=== PATIENT | male | born 1955 | race Caucasian/White ===

== ENCOUNTER 2019-05-07 07:04 | Emergency (ER) | payer BC, OTHER ==
[2019-05-07 07:25] VITALS: PULSE 83
[2019-05-07] MEDS ORDERED: Ketorolac 60 MG/2 ML SDV IM ONE (07:30)
--- NOTE | 2019-05-07 07:40 | EDM.PDOC ---
ED HPI GENERAL MEDICAL PROBLEM - General Chief Complaint: Back Pain or Injury Stated Complaint: back pain Time Seen by Provider: 05/07/19 07:24 Source of Information: Reports: Patient History Limitations: Reports: No Limitations - History of Present Illness INITIAL COMMENTS - FREE TEXT/NARRATIVE: Patient comes into the emergency department with complaints of low back pain. 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 After that he states he felt sharpshooting discomfort anytime he moved. He feels it spreads out across his lower back. He denies any numbness and tingling in either of his lower extremities. He states he get better when he is lying flat on a hard surface and is worse if he is up moving around. He also states that he went to a chiropractor yesterday and it did feel better but only for a short period of time. He also has muscle relaxers from a previous incident with lower back that he did try to take 2 tablets at home however did not have any relief. Patient denies taking anything this morning. Onset: Sudden Quality: Reports: Burning, Throbbing Severity: Severe Improves with: Reports: Immobilization Worsens with: Reports: Movement Context: Reports: Lifting Associated Symptoms: Reports: No Other Symptoms low back Pain Score (Numeric/FACES): 10 - Related Data Allergies Allergy/AdvReac Type Severity Reaction Status Date / Time No Known Allergies Allergy Verified 05/07/19 07:29 Home Meds: Home Meds Acetaminophen [Tylenol] 2 tab PO Q4H PRN 12/11/15 [History] Allopurinol [Zyloprim] 1.5 tab PO BEDTIME 12/11/15 [History] Fish Oil/DHA/EPA [Fish Oil 1,200 MG] 2,000 mg PO DAILY 12/11/15 [History] Hydrochlorothiazide 0.5 tab PO DAILY 12/11/15 [History] Lisinopril 1 tab PO DAILY 12/11/15 [History] Multivitamin [Multivitamins] 1 tab PO BEDTIME 12/11/15 [History] Simvastatin [Zocor] 1 tab PO BEDTIME 12/11/15 [History] Aspirin [Halfprin] 81 mg PO DAILY 05/07/19 [History] Celecoxib [CeleBREX] 200 mg PO DAILY 05/07/19 [History] Cyclobenzaprine [Flexeril] 10 mg PO TID PRN #15 tab 05/07/19 [Rx] Ketorolac [Toradol] 10 mg PO Q6H PRN #20 tab 05/07/19 [Rx] Sildenafil [Viagra] 50 mg PO BEDTIME PRN 05/07/19 [History] Past Medical History HEENT History: Reports: Cataract, Hard of Hearing Cardiovascular History: Reports: CAD, Heart Murmur, High Cholesterol, Hypertension Respiratory History: Reports: None Gastrointestinal History: Reports: GERD, Hiatal Hernia Genitourinary History: Reports: None Musculoskeletal History: Reports: Gout, Other (See Below) Other Musculoskeletal History: arthralgia Neurological History: Reports: None Psychiatric History: Reports: None Endocrine/Metabolic History: Reports: Obesity/BMI 30+ Hematologic History: Reports: None Immunologic History: Reports: None Oncologic (Cancer) History: Reports: None Dermatologic History: Reports: None - Past Surgical History Head Surgeries/Procedures: Reports: None HEENT Surgical History: Reports: Cataract Surgery, Naso-Sinus Surgery GI Surgical History: Reports: Hernia Repair/Other Musculoskeletal Surgical History: Reports: Carpal Tunnel Dermatological Surgical History: Reports: None Social & Family History - Tobacco Use Smoking Status *Q: Former Smoker Used Tobacco, but Quit: Yes Month/Year Tobacco Last Used: 1998 - Recreational Drug Use Recreational Drug Use: No ED ROS GENERAL - Review of Systems Review Of Systems: ROS reveals no pertinent complaints other than HPI. Constitutional: Reports: No Symptoms HEENT: Reports: No Symptoms Respiratory: Reports: No Symptoms Cardiovascular: Reports: No Symptoms Endocrine: Reports: No Symptoms GI/Abdominal: Reports: No Symptoms : Reports: No Symptoms Musculoskeletal: Reports: Back Pain, Muscle Pain Skin: Reports: No Symptoms Neurological: Reports: No Symptoms Psychiatric: Reports: No Symptoms Hematologic/Lymphatic: Reports: No Symptoms Immunologic: Reports: No Symptoms ED EXAM,LOWER BACK PAIN/INJURY - Physical Exam Exam: See Below Exam Limited By: No Limitations General Appearance: Alert, WD/WN, No Apparent Distress Head: Atraumatic, Normocephalic Neck: Normal Inspection, Supple, Non-Tender, Full Range of Motion Respiratory/Chest: No Respiratory Distress Cardiovascular: Normal Peripheral Pulses, No Edema GI/Abdominal: Soft, Non-Tender Extremities: Normal Range of Motion, Non-Tender, No Pedal Edema, Normal Capillary Refill Neurological: Alert, CN II-XII Intact, Oriented x 3 Psychiatric: Normal Affect, Normal Mood Skin Exam: Warm, Dry, Intact, Normal Color Course - Vital Signs Last Recorded V/S: Last Vital Signs Temp 36.9 C 05/07/19 07:20 Pulse 83 05/07/19 07:20 Resp 16 05/07/19 07:20 BP 181/96 H 05/07/19 07:20 Pulse Ox 96 05/07/19 07:20 - Orders/Labs/Meds Meds: Medications Discontinued Medications Generic Name Dose Route Start Last Admin Trade Name Freq PRN Reason Stop Dose Admin Ketorolac Tromethamine 60 mg 05/07/19 07:30 05/07/19 07:42 Toradol IM 05/07/19 07:31 60 mg ONETIME ONE Administration Orphenadrine Citrate 60 mg 05/07/19 07:30 05/07/19 07:42 Norflex IM 05/07/19 07:31 60 mg NOW STA Administration Departure - Departure Time of Disposition: 08:15 Disposition: Home, Self-Care 01 Condition: Good Clinical Impression: Back pain at L4-L5 level - Discharge Information *PRESCRIPTION DRUG MONITORING PROGRAM REVIEWED*: Not Applicable *COPY OF PRESCRIPTION DRUG MONITORING REPORT IN PATIENT ELIZABETH: Not Applicable Prescriptions: Cyclobenzaprine [Flexeril] 10 mg PO TID PRN #15 tab PRN Reason: Pain Ketorolac [Toradol] 10 mg PO Q6H PRN #20 tab PRN Reason: Pain Instructions: Back Injury Prevention, [id number], Muscle Strain, [id number] , Back Exercises, [id number] Referrals: Batool Barnard MD [Primary Care Provider] - Forms: ED Department Discharge, ED Return to Work/School Form Additional Instructions: 1. rest 2. increase your water intake 3. Take Norflex and Toradol as needed for pain and discomfort. Can also alternate with Tylenol 4. Put heat or ice on the lower extremity for 20 minutes 4 times a day 5. Slowly increase her activity level. Use the exercises provided in the discharge instructions to help 6. Can also follow up with care rep or massage therapy to help with any discomfort 7. It discomfort and pain is not better please see primary care for further evaluation and referral to physical therapy 8. Activity and diet as tolerated 9. Please call with any questions or concerns - Assessment/Plan Assessment:: 1. low back pain Plan: 1. Norflex given in the ER 2. Toradol given in the ER 3. Flexeril and Toradol prescription sent with the patient 4. Education regarding ice, heat, activity, diet, follow-up, and over-the- counter medication use provided to the patient 5. All questions and concerns addressed her prior to discharge
[2019-05-07 08:12] VITALS: BP 130/79
== END 2019-05-07 08:20 | disposition home or self-care (01) ==
LOC: VM.ED 07:04
DX: M54.5 Low back pain (principal); I10 Essential (primary) hypertension; I25.10 Atherosclerotic heart disease of native coronary artery without angina pectoris; E78.00 Pure hypercholesterolemia, unspecified; M10.9 Gout, unspecified; E66.9 Obesity, unspecified; Z68.37 Body mass index [BMI] 37.0-37.9, adult; Z87.891 Personal history of nicotine dependence; Z79.899 Other long term (current) drug therapy
CPT/HCPCS: 96372; 99283; J1885; J2360